=== PATIENT | female | born 1965 | race Caucasian/White ===

== ENCOUNTER → 2018-09-22 | Outpatient (CLI) | payer BC ==
[~2018-09-22] MED LIST: NECON 1/35 PO
--- NOTE | 2018-09-29 08:28 | Diagnostic Imaging Report ---
#[id number] - MGSCRBIL #BILATERAL DIGITAL SCREENING MAMMOGRAM WITH CAD: 09/22/2018 CLINICAL: Routine screening. Comparison is made to exams dated: 09/02/2017 mammogram and 08/29/2012 mammogram - [facility]. Current study contains 4 films. The tissue of both breasts is heterogeneously dense. This may lower the sensitivity of mammography. Current study was also evaluated with a Computer Aided Detection (CAD) system. No significant masses, calcifications, or other findings are seen in either breast. There has been no significant interval change. IMPRESSION: BENIGN There is no mammographic evidence of malignancy. A 1 year screening mammogram is recommended. The patient will be notified by letter of the results. Arthur gonzalez/micaela:09/26/2018 13:19:37 Clinic Office Manager: Christina PETIT)(Corbin), [facility] letter sent: Compared to Prior B9 Mammogram BI-RADS: 2 Benign
== END ==
LOC: MAMMO 09:02
PROVIDERS: ATTEND Obstetrics & Gynecology
DX: Z12.31 Encounter for screening mammogram for malignant neoplasm of breast (principal)
CPT/HCPCS: 77067

== ENCOUNTER → 2019-06-04 | Outpatient (CLI) | payer BC ==
[~2019-06-04] MED LIST changes: +OMEGA-31000 MG PO; +ORTHO-NOVUM1 EAC1 PO
--- NOTE | 2019-06-04 09:20 | Diagnostic Imaging Report ---
TECHNIQUE: Magnetic resonance imaging of the RIGHT KNEE was performed WITHOUT injected contrast. HISTORY: Knee pain COMPARISON: None available. FINDINGS: LIGAMENTS AND TENDONS: ACL: Anterior cruciate ligament graft reconstruction. Fibers degenerated, however intact. PCL: Intact Collateral ligaments: Intact Iliotibial band: Unremarkable Popliteal tendon: Intact Extensor mechanism: Intact JOINT: Menisci: Medial: Horizontal tear involving the body and posterior horn. Lateral: Abnormal morphology of the posterior horn likely related to prior tear and repair. No new tear. Articular Cartilage: Medial Compartment: No focal defect. Lateral Compartment: No focal defect. Patellofemoral Compartment: Partial-thickness cartilage loss. Joint Fluid: Small joint effusion. BONE: No focal or infiltrative bone marrow replacing abnormality. No acute fracture. SOFT TISSUES: Otherwise, unremarkable. IMPRESSION: Anterior cruciate ligament graft reconstruction with degenerative but intact fibers. Medial meniscus horizontal tear posterior body and horn. Signed by: Dr. Vincent Black M.D. on 06/04/2019 9:17 AM
== END ==
LOC: MRI 07:31
PROVIDERS: ATTEND Specialist
DX: M17.32 Unilateral post-traumatic osteoarthritis, left knee (principal)

== ENCOUNTER → 2019-06-30 | Day surgery (SDC) | payer BC ==
[~2019-06-30] MED LIST changes: +ACETAMINOPHEN/CODEINE 300MG - 30MG TAB ONE; +CEFAZOLIN SOD 1 GM/NS 50ML 50 ML IV ONE; +DEXAMETHASONE SOD PHOS INJ 4 MG/ML VIAL ONE; +FENTANYL CITRATE/PF 100MCG/2 ML INJ ONE; +IBUPROFEN 800MG/ 250ML 250 ML IV ONE; +LIDOCAINE HCL 2% LOCAL INJ 5 ML SDV VIAL INJ ONE; +MIDAZOLAM HCL 2 MG/2 ML VIAL ONE; +MORPHINE SULFATE 2 MG/ML SYR 1ML ONE; +ONDANSETRON HCL INJ 2MG/ML 2ML 2 MG/ML VIAL ONE; +PROPOFOL IV EMULSION 10 MG/ML 20 ML VIAL ONE; +SEVOFLURANE INHAL SOLN 250 ML PEN BTL ONE
--- OUTSIDE RECORDS SUMMARY | 2019-06-30 05:47 | XMS REPORT ---
Author Author [facility] Address Unknown Phone Unavailable Care Team Providers Care Cattle Farmer Name Role Phone LUI NARANJO Unavailable Unavailable SHAWN BRITTON Unavailable Unavailable Problems This patient has no known problems. Allergies, Adverse Reactions, Alerts This patient has no known allergies or adverse reactions. Medications This patient has no known medications. Results Test Description Test Time Test Comments Text Results Atomic Results Result Comments MRI KNEE LEFT WO 2019-06-04 09:12:00 [place] [address] Patient Name: DEBBIE LYLES MR #: [id number] : 1965 Age/Sex: 53/F Req #: [id number] Adm Physician: Ordered by: LUI NARANJO MD Report #: [id number] Location: MRI Room/Bed: Procedure: [id number] MRI/MRI KNEE LEFT WO Exam Date: Exam Time: REPORT STATUS: Signed TECHNIQUE: Magnetic resonance imaging of the RIGHT KNEE was performe d WITHOUT injected contrast. HISTORY: Knee pain COMPARISON: None available. FINDINGS: LIGAMENTS AND TENDONS: ACL: Anterior cruciate ligament graft reconstruction. Fibers degenerated, however intact. PCL: Intact Collateral ligaments: Intact Iliotibial band: Unremarkable Popliteal tendon: Intact Extensor mechanism: Intact JOINT: Menisci: Medial: Horizontal tear involving the body and posterior horn. Lateral: Abnormal morphology of the posterior horn likely related to prior tear and repair. No new tear. Articular Cartilage: Medial Compartment: No focal defect. Lateral Compartment: No focal defect. Patellofemoral Compartment: Partial-thickness cartilage loss. Joint Fluid: Small joint effusion. BONE: No focal or infiltrative bone marrow replacing abnormality. No acute fracture. SOFT TISSUES: Otherwise, unremarkable. IMPRESSION: Anterior cruciate ligament graft reconstruction with degenerative but intact fibers. Medial meniscus horizontal tear posterior body and horn. Signed by: Dr. Clau Alvarez M.D. on 06/04/2019 9:17 AM Dictated By: CLAU ALVAREZ MD 6 Transcribed By: SEBASTIAN on 06/04/19916 COPY TO: LUI NARANJO MD MAMMOGRAPHY DIGITAL SCR BILAT 2018-09-22 09:43:00 [place] [address] Patient Name: DEBBIE LYLES MR #: [id number] : 1965 Age/Sex: 53/F Req #: [id number] Adm Physician: Ordered by: SHAWN BRITTON MD Report #: [id number] Location: MAMMO Room/Bed: Procedure: [id number] MG/MAMMOGRAPHY DIGITAL SCR BILAT Exam Date: 09/22/18 Exam Time: 0906 REPORT STATUS: Signed #[id number] - MGSCRBIL #BILATERAL DIGITAL SCREENING MAMMOGRAM WITH CAD: 09/22/2018 CLINICAL: Routine screening. Comparison is made to exams dated: 09/02/2017 mammogram and 08/29/2012 mammogram - [facility]. Current study contains 4 films. The tissue of both breasts is heterogeneously dense. This may lower the sensitivity of mammography. Current study was also evaluated with a Computer Aided Detection (CAD) system. No significant masses, calcifications, or other findings are seen in either breast. There has been no significant interval change. IMPRESSION: BENIGN There is no mamm ographic evidence of malignancy. A 1 year screening mammogram is recommended. The patient will be notified by letter of the results. Lilly gonzalez/rosmery:09/26/2018 13:19:37 Van Owner Operator: Christina PETIT)([place]), [facility] letter sent: Compared to Prior B9 Mammogram BI-RADS: 2 Benign Dictated By: LILLY KAN DO 131 Transcribed By: ROSMERY on 09/26/181318 COPY TO: SHAWN BRITTON MD MAMMOGRAPHY DIGITAL SCR BILAT [place] [address] Patient Name: DEBBIE LYLES MR #: [id number] : 1965 Age/Sex: 51/F Req #: [id number] Adm Physician: Ordered by: SHAWN BRITTON MD Report #: [id number] Location: MAMMO Room/Bed: Procedure: [id number] MG/MAMMOGRAPHY DIGITAL SCR BILAT Exam Date: 09/02/17 Exam Time: 1120 REPORT STATUS: Signed #[id number] - MGSCRBIL #BILATERAL DIGITAL SCREENING MAMMOGRAM WITH CAD: 09/02/2017 CLINICAL: Routine screening. Comparison is made to exams dated: 09/12/2016 mammogram and 08/29/2012 mammogram - [facility]. Current study contains 4 films. The tissue of both breasts is heterogeneously dense. This may lower the sensitivity of mammography. Current study was also evaluated with a Computer Aided Detection (CAD) system. No significant masses, calcifications, or other findings are seen in either breast. The asymmetry previously noted in the medial left breast is no longer seen, compatible with overlapping breast tissue. IMPRESSION: NEGATIVE There is no mammographic evidence of malignancy. A 1 year screening mammogram is recommended. The patient will be notified by letter of the results. Dr. Ilana Callahan MD rs/:09/05/2017 08:18:43 Van Owner Operator: Christina YEH(R)(M), [facility] letter sent: Compared to Prior B9 Mammogram BI-RADS: 1 Negative Dictated By: ILANA CALLAHAN MD 7 Transcribed By: ROSMERY on 09/05/17817 COPY TO: SHAWN BRITTON MD
[2019-06-30 09:23] VITALS: BP 119/81
--- NOTE | 2019-06-30 10:48 | Operative Report ---
DATE OF PROCEDURE: 06/30/2019 SURGEON: Bryce Augustin MD CERTIFIED FIRST ASSISTANT: Zachary Herrera PA-C. PREOPERATIVE DIAGNOSIS: Recurrent medial meniscal tear, left knee. 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 PROCEDURES: Revision left knee arthroscopy, partial medial meniscectomy, partial lateral meniscectomy, chondroplasty of trochlear groove. INDICATIONS: The patient is an active 53-year-old lady, who has clinic signs and symptoms consistent with a tear of the medial meniscus. She has had three previous arthroscopies of this knee. She injured her knee a few months ago. She subsequently noticed significant mechanical symptoms. The risks and benefits and realistic expectations of left knee arthroscopy have been explained. She states she understands and wishes to proceed. PROCEDURE IN DETAIL: The patient was brought to the operating room and placed under general anesthetic. A preoperative time-out was performed. Her left lower extremity was prepped and draped in a sterile manner. A tourniquet placed on the upper thigh had been inflated to 300 mmHg. The previous arthroscopy portals were used. The knee was insufflated with sterile saline and systematically inspected. There was grade 1 chondromalacia of the undersurface of the patella. 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 The medial compartment was inspected and there was a large radial tear coming off the posterior horn of the medial meniscus. The cruciate ligaments and the previous ACL graft were intact. The lateral compartments this also showed a much smaller radial tear of the lateral meniscus. A mechanical shaver and biting forceps were used to debride the medial meniscus back to a stable margin. Before and after photographs were taken. Biting forceps were used to perform a partial lateral meniscectomy. This did not amount to removing more than 15% of the lateral meniscus. A mechanical shaver was used to gently contour the unstable margins of the trochlear groove and the undersurface of the patella. The knee was thoroughly irrigated with sterile saline. The arthroscopic instruments were removed. The portal incisions were closed with nylon stitches. A sterile bandage was applied. She was extubated and transported to the recovery room in stable condition. There was no blood loss and all needle and sponge counts were correct. Bryce Augustin MD DR/ANDREA /[id number]
== END | disposition home or self-care (01) ==
LOC: OR 05:44
PROVIDERS: ATTEND Specialist
DX: S83.242A Other tear of medial meniscus, current injury, left knee, initial encounter (principal); S83.282A Other tear of lateral meniscus, current injury, left knee, initial encounter; M94.262 Chondromalacia, left knee; X58.XXXA Exposure to other specified factors, initial encounter; Y93.02 Activity, running; Y92.89 Other specified places as the place of occurrence of the external cause; Y99.8 Other external cause status; Z91.040 Latex allergy status; Z91.048 Other nonmedicinal substance allergy status
CPT/HCPCS: 29880; J0690; J1100; J2001; J2250; J2270; J2405; J2704; J3010

== ENCOUNTER → 2019-09-30 | Outpatient (CLI) | payer BC ==
[~2019-09-30] MED LIST changes: -ACETAMINOPHEN/CODEINE 300MG - 30MG TAB ONE; -CEFAZOLIN SOD 1 GM/NS 50ML 50 ML IV ONE; -DEXAMETHASONE SOD PHOS INJ 4 MG/ML VIAL ONE; -FENTANYL CITRATE/PF 100MCG/2 ML INJ ONE; -IBUPROFEN 800MG/ 250ML 250 ML IV ONE; -LIDOCAINE HCL 2% LOCAL INJ 5 ML SDV VIAL INJ ONE; -MIDAZOLAM HCL 2 MG/2 ML VIAL ONE; -MORPHINE SULFATE 2 MG/ML SYR 1ML ONE; -ONDANSETRON HCL INJ 2MG/ML 2ML 2 MG/ML VIAL ONE; -PROPOFOL IV EMULSION 10 MG/ML 20 ML VIAL ONE; -SEVOFLURANE INHAL SOLN 250 ML PEN BTL ONE
== END ==
LOC: MAMMO 09:13
PROVIDERS: ATTEND Obstetrics & Gynecology
DX: Z12.31 Encounter for screening mammogram for malignant neoplasm of breast (principal)
CPT/HCPCS: 77067

== ENCOUNTER → 2019-10-29 | Day surgery (SDC) | payer BC ==
[~2019-10-29] MED LIST changes: +FENTANYL CITRATE/PF 100MCG/2 ML INJ ONE; +GLUCAGON FOR INJ 1 MG VIAL ONE; +MIDAZOLAM HCL 2 MG/2 ML VIAL ONE; +PREMPRO 0.625-1 EAC1 PO; +PROPOFOL IV EMULSION 10 MG/ML 50 ML VIAL ONE
[2019-10-29 15:25] VITALS: BP 108/71
--- NOTE | 2019-10-29 20:35 | Operative Report ---
DATE OF PROCEDURE: 10/29/2019 SURGEON: Lenin Kilpatrick MD PROCEDURE: Colonoscopy. INDICATIONS FOR COLONOSCOPY: Surveillance colonoscopy, personal history of colon polyps. MEDICATIONS: The patient was done under MAC, please see anesthesiologist's note. PROCEDURE IN DETAIL: With the patient in left lateral decubitus position, the flexible fiberoptic Olympus colonoscope was inserted into the rectum with ease and advanced all the way to the cecum. It was then withdrawn slowly. Mucosa overlying the cecum, ascending colon, transverse colon grossly appeared to be within normal limits. Some diverticulosis was noted in the left colon. The rectum grossly appeared to be within normal limits. The scope was then retroflexed into the distal rectum and small internal hemorrhoids were noted, none of which was actively bleeding. The scope was then straightened out, it was subsequently withdrawn. The patient tolerated the procedure well. IMPRESSION: 1. Diverticulosis. 2. Internal hemorrhoids, none actively bleeding. PLAN: Initiate high-fiber, low-fat diet. Initiate high-fiber supplement. Start VSL#3 one p.o. daily. The patient might benefit from a followup colonoscopy in 5 years. Lenin Kilpatrick MD [facility] [place]/MOD[place] /[id number] cc: Kofi Rolon MD
== END | disposition home or self-care (01) ==
LOC: OR 12:16
PROVIDERS: ATTEND Internal Medicine Gastroenterology
DX: K59.09 Other constipation (principal); Z68.26 Body mass index [BMI] 26.0-26.9, adult; Z86.010 Personal history of colon polyps; Z91.040 Latex allergy status; Z91.048 Other nonmedicinal substance allergy status; Z01.812 Encounter for preprocedural laboratory examination; K57.30 Diverticulosis of large intestine without perforation or abscess without bleeding; K64.8 Other hemorrhoids
CPT/HCPCS: 45378; J1610; J2250; J2704; J3010

== ENCOUNTER → 2020-09-06 | Outpatient (CLI) | payer SELFPAY ==
[~2020-09-06] MED LIST changes: -FENTANYL CITRATE/PF 100MCG/2 ML INJ ONE; -GLUCAGON FOR INJ 1 MG VIAL ONE; -MIDAZOLAM HCL 2 MG/2 ML VIAL ONE; -PROPOFOL IV EMULSION 10 MG/ML 50 ML VIAL ONE
== END ==
LOC: MAMMO 09:02
PROVIDERS: ATTEND Obstetrics & Gynecology
DX: Z12.31 Encounter for screening mammogram for malignant neoplasm of breast (principal)
CPT/HCPCS: 77067

== ENCOUNTER → 2021-01-30 | Outpatient (CLI) | payer BC | LOC: DX 13:34 | PROVIDERS: ATTEND Obstetrics & Gynecology | DX: Z13.820 Encounter for screening for osteoporosis (principal) | CPT/HCPCS: 77080 ==

== ENCOUNTER → 2021-09-04 | Outpatient (CLI) | payer SELFPAY | LOC: MAMMO 12:33 | PROVIDERS: ATTEND Obstetrics & Gynecology | DX: Z12.31 Encounter for screening mammogram for malignant neoplasm of breast (principal) | CPT/HCPCS: 77067 ==

== ENCOUNTER → 2022-08-29 | Outpatient (CLI) | payer OTHER | LOC: MAMMO 10:40 | PROVIDERS: ATTEND Obstetrics & Gynecology | DX: Z12.31 Encounter for screening mammogram for malignant neoplasm of breast (principal) | CPT/HCPCS: 77067 ==

== ENCOUNTER → 2023-09-13 | Outpatient (REF) | payer OTHER | LOC: MAMMO 13:14 | PROVIDERS: ATTEND Obstetrics & Gynecology | DX: Z12.31 Encounter for screening mammogram for malignant neoplasm of breast (principal) | CPT/HCPCS: 77067 ==

== ENCOUNTER → 2024-09-14 | Outpatient (REF) | payer BC | LOC: MAMMO 10:15 | PROVIDERS: ATTEND Obstetrics & Gynecology | DX: Z12.31 Encounter for screening mammogram for malignant neoplasm of breast (principal) | CPT/HCPCS: 77067 ==

== ENCOUNTER → 2024-09-30 | Outpatient (REF) | payer BC | LOC: US 14:21 → EEVIPCON 14:30 | PROVIDERS: ATTEND Obstetrics & Gynecology | DX: R92.30 Dense breasts, unspecified (principal) ==

== ENCOUNTER → 2025-08-31 | Outpatient (REF) | payer OTHER | LOC: MAMMO 10:12 | PROVIDERS: ATTEND Obstetrics & Gynecology | DX: Z12.31 Encounter for screening mammogram for malignant neoplasm of breast (principal) | CPT/HCPCS: 77067 ==